=== PATIENT | female | born 2000 | race Caucasian/White ===

== ENCOUNTER 2021-10-06 19:25 | Emergency (ER) | payer BC, OTHER ==
[2021-10-06 19:37] VITALS: RESP 16; TEMP 99
--- NOTE | 2021-10-06 20:42 | XR ---
EXAMINATION TYPE: XR ankle complete RT DATE OF EXAM: 10/06/2021 COMPARISON: NONE HISTORY: Pain and swelling TECHNIQUE: 3 views FINDINGS: There is some soft tissue mild swelling over the lateral malleolus. Ankle mortise is anatom ic. No fracture seen. Joint spaces are normal. IMPRESSION: Soft tissue swelling. No fracture seen.
--- NOTE | 2021-10-06 20:43 | XR ---
EXAMINATION TYPE: XR foot limited RT DATE OF EXAM: 10/06/2021 COMPARISON: NONE HISTORY: Pain and swelling TECHNIQUE: 2 views FINDINGS: Metatarsals are intact. I see no fracture nor dislocation. Joint spaces are normal. Toes ap pear intact. IMPRESSION: Negative right foot exam. No fracture.
--- NOTE | 2021-10-06 21:32 | ED ---
Lower Extremity Injury HPI - General Chief Complaint: Extremity Injury, Lower Stated Complaint: right ankle pain Source: patient, RN notes reviewed Mode of arrival: ambulatory Limitations: no limitations - History of Present Illness Initial Comments: Patient is a 20-year-old female who presents to the emergency room with complaint of right ankle pain and swelling and increased difficulty in ambulating after rolling her ankle on Wednesday (2 days ago). She reports increase in swelling and pain despite utilizing Motrin, decreasing activity levels and elevating her ankle when possible. She denies any popping or locking. She denies any range of motion not limited by pain. She denies any fevers chills, numbness or tingling. She denies any other complaints or concerns. She has no significant past medical history and does not take any medications on a regular basis. - Related Data Allergies Allergy/AdvReac Type Severity Reaction Status Date / Time No Known Allergies Allergy Verified 10/06/21 19:33 Review of Systems ROS Statement: Those systems with pertinent positive or pertinent negative responses have been documented in the HPI. ROS Other: All systems not noted in ROS Statement are negative. Past Medical History Past Medical History: No Reported History History of Any Multi-Drug Resistant Organisms: None Reported Past Surgical History: No Surgical Hx Reported Past Psychological History: No Psychological Hx Reported Smoking Status: Never smoker Past Alcohol Use History: Rare Past Drug Use History: None Reported General Exam Limitations: no limitations General appearance: alert, in no apparent distress Head exam: Present: atraumatic, normocephalic, normal inspection Eye exam: Present: normal appearance, PERRL, EOMI. Absent: scleral icterus, conjunctival injection, periorbital swelling ENT exam: Present: mucous membranes moist Neck exam: Present: normal inspection Respiratory exam: Absent: respiratory distress, accessory muscle use Right Ankle exam: Present: full ROM, tenderness, swelling, ecchymosis. Absent: lacera tion, deformity, crepitus, dislocation Neurological exam: Present: alert, oriented X3, CN II-XII intact Psychiatric exam: Present: normal affect, normal mood Skin exam: Present: warm, dry, intact, normal color. Absent: rash Course Vital Signs 10/06/21 10/06/21 19:33 21:44 Temperature 99.0 F Pulse Rate 93 89 Respiratory 16 16 Rate Blood Pressure 124/83 116/76 O2 Sat by Pulse 99 98 Oximetry Medical Decision Making - Medical Decision Making Right ankle pain with swelling and bruising after rolling. Will check x-ray of ankle and foot. Xray right ankle and foot negative for fracture or dislocation. Will apply SANTINO wrap and advised R.I.C.E. Due to occupational 48 hours. Return parameters to the emergency room discussed. Case discussed with Dr. Ramirez. Disposition Clinical Impression: Sprain and strain of ankle Disposition: HOME SELF-CARE Condition: Stable Instructions (If sedation given, give patient instructions): Ankle Sprain (ED) Additional Instructions: Please return to the Emergency Department if symptoms worsen or any other concerns. If no improvement in one week will need further evaluation. Will keep off work next 48 hours to promote healing. Please utilize ankle stirrup for joint support. Airway as tolerated. Utilize ibuprofen as needed for pain. Please rest apply ice and compression while elevating right ankle. Please follow-up with your primary care provide. Is patient prescribed a controlled substance at d/c from ED?: No Referrals: Debbie Ogden MD [Primary Care Provider] - 1-2 days Time of Disposition: 21:30
[2021-10-06 21:51] VITALS: BP 116/76; PULSE 89
== END 2021-10-06 21:48 | disposition home or self-care (01) ==
LOC: EC 19:25
DX: S93.401A Sprain of unspecified ligament of right ankle, initial encounter (principal); X50.0XXA Overexertion from strenuous movement or load, initial encounter
CPT/HCPCS: 73610; 73620; 99283; L4350